=== PATIENT | male | born 1965 | race Caucasian/White ===

== ENCOUNTER 2021-04-02 17:12 | Inpatient (IN) | payer BC, SELFPAY ==
[2021-04-02 17:13] VITALS: BP 130/83; PULSE 110; RESP 16; TEMP 36.8; O2SAT 98; BMI 23.3
[2021-04-02 18:55] LABS: Coronavirus 19, PCR Not Detected (NotDetected); Influenza A, PCR Not Detected (NotDetected); Influenza B, PCR Not Detected (NotDetected)
[2021-04-02 19:06] LABS: Basophils % 0.2 % (0.1-2.0); Hematocrit 53.5 % (42.0-52.0); Hemoglobin 16.3 g/dL (14.1-18.0); Lymphocytes # 0.5 K/mm3 (0.7-4.5); Lymphocytes % 4.7 % (10-50); Mean Corpuscular HGB Conc 30.5 g/dL (31.8-35.4); Mean Corpuscular Hemoglobin 30.3 pg (27.0-31.2); Mean Corpuscular Volume 99.3 fl (80-94); Mean Platelet Volume 9.4 fl (7.4-10.4); Monocytes # 0.6 K/mm3 (0.1-1.0); Monocytes % 5.1 % (1.7-9.3); Neutrophils # 10.2 K/mm3 (1.8-7.8); Neutrophils % 89.9 % (37.0-80.0); Platelet Count 268 K/mm3 (142-424); Red Blood Count 5.38 M/mm3 (4.60-6.20); White Blood Count 11.3 K/mm3 (4.8-10.8)
[2021-04-02 19:12] LABS: Alanine Aminotransferase 32 U/L (12-78); Albumin Level 4.3 g/dl (3.5-5.0); Alkaline Phosphatase 138 U/L (38-126); Aspartate Amino Transferase 33 U/L (17-59); Bilirubin,Total 0.7 mg/dl (0.2-1.3); Blood Urea Nitrogen 33 mg/dl (9-20); Calcium 9.7 mg/dl (8.4-10.2); Chloride 98 mmol/L (98-107); Creatinine Clearance Estimated 41 mL/min (50-200); Estimated Glomerular Filt Rate 39 ml/min (>60); GFR (African American) 47 ML/MIN (>60); Globulin 4.1 g/dL (1.3-3.2); Lipase 34 U/L (23-300); Potassium 5.8 mmoL/L (3.5-5.1); Sodium 135 mmol/L (136-145); Total Protein,Serum 8.4 g/dl (6.3-8.2)
[2021-04-02 19:23] LABS: Anion Gap 37.8 mEq/L (5-15)
--- NOTE | 2021-04-02 19:23 | PC.NURSE ---
Dr Galindo notified on critical BG & CO2
[2021-04-02 19:25] LABS: Carbon Dioxide < 5 mmol/L (22.0-30.0); Glucose 665 mg/dl (74-100)
[2021-04-02 19:27] LABS: MANUAL DIFFERENTIAL MANUAL DIFFERENTIAL (MANUAL DIFF)
--- NOTE | 2021-04-02 19:27 | HMH.EDGENADL ---
ED Disposition Clinical Impression: DKA (diabetic ketoacidosis) Qualifiers: Diabetes mellitus type: type 2 Diabetes mellitus complication detail: without coma Qualified Code(s): E11.10 - Type 2 diabetes mellitus with ketoacidosis without coma Hyperglycemia due to type 2 diabetes mellitus Qualifiers: Diabetes mellitus long term care pharmacist insulin use: with usp use Qualified Code(s): E11.65 - Type 2 diabetes mellitus with hyperglycemia; Z79.4 - jail (current) use of insulin Disposition: Admitted As Inpatient Condition on Discharge: Fair Instructions: DI for Diarrhea and Traveler's Diarrhea -- Adult, DI for Diarrhea and Traveler's Diarrhea -- Child, DI for Nausea -- Adult, DI for Nausea -- Child Referrals: Provider,Referral, MD [Primary Care Provider] - - Critical Care Critical Care Time: Yes Attestation: On 04/02/21, the high probability of a clinically significant, sudden or life threatening deterioration of the following system(s) required my full and direct attention, intervention and personal management. The time I documented below is in addition to time spent performing reported procedures but includes the following listed in this critical care notation. Total Critical Care Time: 65 Vital system(s) involved:: Metabolic Failure My critical care processes included: Assessment & monitoring of V/S, Initial and Re-exams, Data Review/Interpretation, Coordinating Care, Medication Orders and management, Documentation Medical Decision Making - Medical Records Medical records reviewed: Yes: I reviewed the patient's medical records. - Tanner Inquiry Pt receiving controlled substance: No Vital Signs: 04/02/21 17:13 Temperature 98.2 F Temperature Source Oral Pulse Rate [Right Radial] 110 H Respiratory Rate 16 Blood Pressure [Right Arm] 130/83 Blood Pressure Mean [Right Arm] 98 Blood Pressure Source [Right Arm] Automatic Cuff Blood Pressure Position [Right Arm] Sitting 02 Sat by Pulse Oximetry 98 Oxygen Delivery Method Room Air - Lab Data Lab results reviewed: Yes: I reviewed the patient's lab results. Lab Results 04/02/21 18:43: SARS-CoV-2 (PCR) Not detected, Influenza A Untype (PCR) Not detected, Influenza Type B (PCR) Not detected 04/02/21 18:45: WBC 11.3 H, RBC 5.38, Hgb 16.3, Hct 53.5 H, MCV 99.3 H, MCH 30.3, MCHC 30.5 L, RDW 14.0, Plt Count 268, MPV 9.4, Neut % (Auto) 89.9 H, Lymph % (Auto) 4.7 L, [place] % (Auto) 5.1, Eos % (Auto) 0.0 L, Baso % (Auto) 0.2, Neut # (Auto) 10.2 H, Lymph # (Auto) 0.5 L, [place] # (Auto) 0.6, Eos # (Auto) 0.0, Baso # (Auto) 0.0, Total Counted 100, Neutrophils % (Manual) 88 H, Lymphocytes % (Manual) 6 L, Monocytes % (Manual) 6, Platelet Estimate Normal, RBC Morphology Normal 04/02/21 18:45: Sodium 135 L, Potassium 5.8 H, Chloride 98, Carbon Dioxide < 5 L*, Anion Gap 37.8 H, BUN 33 H, Creatinine 1.80 H, Estimated Creat Clear 41, Estimated GFR 39 L, Est GFR ( Amer) 47 L, Glucose 665 H*, Calcium 9.7, Total Bilirubin 0.7, AST 33, ALT 32, Alkaline Phosphatase 138 H, Total Protein 8.4 H, Albumin 4.3, Globulin 4.1 H, Albumin/Globulin Ratio 1.0 L, Lipase 34 04/02/21 18:45: Acetone Level Moderate Result diagrams: 04/02/21 18:45 04/02/21 18:45 Orders (Tests/Meds): ED MEDICATIONS Generic Name Dose Route Start Last Admin Trade Name Freq PRN Reason Stop Dose Admin Insulin Human Regular 100 unit 101 mls @ 6.414 mls/hr 04/02/21 19:45 / Sodium Chloride IV 05/02/21 19:44 .[id number] PAULO Protocol 0.1 UNITS/KG/HR Discontinued Medications Generic Name Dose Route Start Last Admin Trade Name Freq PRN Reason Stop Dose Admin Sodium Chloride 1,000 mls @ 999 mls/hr 04/02/21 18:07 04/02/21 18:49 Sod Chlor 0.9% 1000ml Bag IV 04/02/21 19:07 999 mls/hr .Q1H1M ONE Administration Insulin Human Lispro 8 unit 04/02/21 19:32 Humalog 100 Units/Ml 3ml Vial (Ssi) IV 04/02/21 19:33 ONCE ONE Ondansetron HCl 4 mg 04/02/21 18:06 04/02/21 18:49 Ondansetron 4mg/2ml
[2021-04-02 19:45] LABS: Lymphocytes % 6 % (10-50); Monocytes % 6 % (2-9); Neutrophils % 88 % (42-76); Platelet Estimate Normal; RBC Morphology Normal; Total Cells Counted 100
[2021-04-02 20:01] LABS: Acetone, Serum (Rapid) Moderate (None Detect)
--- NOTE | 2021-04-02 20:02 | PC.NURSE ---
Dr. Galindo notified of ABG results.
[2021-04-02 20:20] LABS: ABG Base Excess -26.8 mmol/L (-2.4-2.3); ABG HCO3 3.7 mmhg (22.0-26.0); ABG Oxygen Saturation 99 % (90-100); ABG PO2 137.2 mmhg (80-100); ABG TCO2 4.1 mmhg (23-27)
[2021-04-02 20:22] LABS: Allen's Test Acceptable; Oxygen RA %; Source Right Radial
[2021-04-02 20:23] LABS: ABG PCO2 13.6 mmhg (35.0-45.0); ABG PH 7.05 mmol/L (7.35-7.45)
--- NOTE | 2021-04-02 20:40 | PC.NURSE ---
Lucía Salas notified Dr Broderick of critical BG & CO2 results. NO: to Insulin gtt @ 6.4 units/hr and Lispro 8 units SQ 1x.
[2021-04-02 21:04] LABS: Blood Urea Nitrogen 34 mg/dl (9-20); Calcium 8.9 mg/dl (8.4-10.2); Chloride 102 mmol/L (98-107); Creatinine Clearance Estimated 46 mL/min (50-200); Estimated Glomerular Filt Rate 45 ml/min (>60); GFR (African American) 54 ML/MIN (>60); Potassium 5.3 mmoL/L (3.5-5.1); Sodium 136 mmol/L (136-145)
[2021-04-02 21:21] LABS: Anion Gap 34.3 mEq/L (5-15)
[2021-04-02 21:22] LABS: Carbon Dioxide < 5 mmol/L (22.0-30.0); Glucose 658 mg/dl (74-100)
[2021-04-02 21:29] VITALS: BMI 21.9
[2021-04-02 22:26] VITALS: BP 139/84; PULSE 118; RESP 22; TEMP 36.9; O2SAT 98
--- NOTE | 2021-04-02 22:48 | PC.NURSE ---
PT ARRIVED TO FLOOR VIA W/C FROM ED W/STAFF AT [id number]
[2021-04-02 22:57] VITALS: PULSE 120
[2021-04-02 23:02] LABS: POC Glucose,Bedside 586 (70-110)
[2021-04-02 23:06] VITALS: BP 138/79; PULSE 115; RESP 25; TEMP 36.6; O2SAT 100
[2021-04-02 23:25] LABS: POC Glucose,Bedside 584 (70-110)
[2021-04-03] VITALS (13 sets, daily range): BP systolic 93–168; BP diastolic 57–95; PULSE 86–120; RESP 16–21; TEMP 36.6–37.3; O2SAT 96–100; BMI 21.8
[2021-04-03 00:12] LABS: POC Glucose,Bedside 535 (70-110)
[2021-04-03 02:32] LABS: NT Pro Brain Natriuretic Pep. 273 pg/mL (0-125)
[2021-04-03 03:00] LABS: Anion Gap 30.1 mEq/L (5-15); Blood Urea Nitrogen 38 mg/dl (9-20); Calcium 9.1 mg/dl (8.4-10.2); Chloride 107 mmol/L (98-107); Creatinine Clearance Estimated 51 mL/min (50-200); Estimated Glomerular Filt Rate 52 ml/min (>60); GFR (African American) 63 ML/MIN (>60); Potassium 4.1 mmoL/L (3.5-5.1); Sodium 139 mmol/L (136-145)
[2021-04-03 03:06] LABS: Carbon Dioxide 6 mmol/L (22.0-30.0); Glucose 452 mg/dl (74-100)
[2021-04-03 06:32] LABS: POC Glucose,Bedside 401 (70-110)
[2021-04-03 06:32] LABS: POC Glucose,Bedside 422 (70-110)
[2021-04-03 06:32] LABS: POC Glucose,Bedside 215 (70-110)
[2021-04-03 06:32] LABS: POC Glucose,Bedside 296 (70-110)
--- NOTE | 2021-04-03 07:05 | HMH.HP ---
*Admission Date: 04/02/21 *Chief complaint: Vomiting *History of present illness: 55-year-old male with diabetes and diabetic neuropathy presented to the emergency department with 4 days of vomiting and abdominal pain. Symptoms were rather sudden in onset. While patient has had diabetes for approximately 10 years he has not seen a healthcare provider in a year and a half since the pandemic began. Patient uses a 70/30 insulin 25 units twice daily and reports his last known A1c was 12. Work-up in the emergency department revealed diabetic ketoacidosis. Patient was admitted to the stepdown unit and started on insulin drip. Blood sugars peaked at over 600 and this morning are down to 215. Patient continues to have some nausea. CO2 remains low. He is mildly tachycardic. He denies chest pain, shortness of breath, cough. [facility] History I have reviewed the patient's past medical history: Yes Medical History: Reports:: Diabetes Mellitus Type 2 Denies:: Cancer, Diabetes Mellitus Type 1, MRSA *Have you ever received a pneumonia vaccine?: No *Have you received a flu vaccine this season?: No Laterality Cases: Bilateral: Tonsillectomy Other Surgeries: Yes: Appendectomy Amputation: No Fractures: No - *Social History Smoking Status: Current every day smoker Alcohol Intake: never *Occupational Status:: employed *Travel in the last 8 weeks: None Family Hx:: No significant family history Review of Systems - Review of Systems Review of systems:: pertinent systems reviewed and negative unless documented below Meds Allergies Allergy/AdvReac Type Severity Reaction Status Date / Time No Known Allergies Allergy Verified 04/02/21 18:06 Exam Vital signs and Labs for Last 24 Hours: Temp Pulse Resp BP Pulse Ox 98.0 F 111 H 21 135/81 100 04/03/21 04:00 04/03/21 04:00 04/03/21 04:00 04/03/21 04:00 04/03/21 04:00 Laboratory Results - last 24 hr 04/02/21 18:43: SARS-CoV-2 (PCR) Not detected, Influenza A Untype (PCR) Not detected, Influenza Type B (PCR) Not detected 04/02/21 18:45: WBC 11.3 H, RBC 5.38, Hgb 16.3, Hct 53.5 H, MCV 99.3 H, MCH 30.3, MCHC 30.5 L, RDW 14.0, Plt Count 268, MPV 9.4, Neut % (Auto) 89.9 H, Lymph % (Auto) 4.7 L, [place] % (Auto) 5.1, Eos % (Auto) 0.0 L, Baso % (Auto) 0.2, Neut # (Auto) 10.2 H, Lymph # (Auto) 0.5 L, [place] # (Auto) 0.6, Eos # (Auto) 0.0, Baso # (Auto) 0.0, Total Counted 100, Neutrophils % (Manual) 88 H, Lymphocytes % (Manual) 6 L, Monocytes % (Manual) 6, Platelet Estimate Normal, RBC Morphology Normal 04/02/21 18:45: Sodium 135 L, Potassium 5.8 H, Chloride 98, Carbon Dioxide < 5 L*, Anion Gap 37.8 H, BUN 33 H, Creatinine 1.80 H, Estimated Creat Clear 41, Estimated GFR 39 L, Est GFR ( Amer) 47 L, Glucose 665 H*, Calcium 9.7, Total Bilirubin 0.7, AST 33, ALT 32, Alkaline Phosphatase 138 H, Total Protein 8.4 H, Albumin 4.3, Globulin 4.1 H, Albumin/Globulin Ratio 1.0 L, Lipase 34 04/02/21 18:45: Acetone Level Moderate 04/02/21 19:26: Specimen Source Right radial, O2 % Ra, ABG pH 7.05 L*, ABG pCO2 13.6 L, ABG pO2 137.2 H, ABG HCO3 3.7 L, ABG Total CO2 4.1 L, ABG O2 Saturation 99, ABG Base Excess -26.8 L, Wesley Test Acceptable 04/02/21 20:40: Sodium 136, Potassium 5.3 H, Chloride 102, Carbon Dioxide < 5 L*, Anion Gap 34.3 H, BUN 34 H, Creatinine 1.60 H, Estimated Creat Clear 46, Estimated GFR 45 L, Est GFR ( Amer) 54 L, Glucose 658 H*, Calcium 8.9 04/02/21 22:05: POC Glucose 586 H* 04/02/21 23:04: POC Glucose 584 H* 04/03/21 00:03: POC Glucose 535 H* 04/03/21 01:15: POC Glucose 422 H* 04/03/21 02:06: POC Glucose 401 H* 04/03/21 02:07: NT-Pro-B Natriuret Pep 273 H 04/03/21 02:07: Sodium 139, Potassium 4.1 D, Chloride 107, Carbon Dioxide 6 L* D, Anion Gap 30.1 H, BUN 38 H, Creatinine 1.40 H, Estimated Creat Clear 51, Estimated GFR 52 L, Est GFR ( Amer) 63, Glucose 452 H* D, Calcium 9.1 04/03/21 03:16: POC Glucose 296 H 04/03/21 05:17: POC Glucose 215 H I & O for Last 24 hours: Intake & Output
[2021-04-03 07:12] LABS: POC Glucose,Bedside 169 (70-110)
[2021-04-03 08:01] LABS: Acetone, Serum (Rapid) Small (None Detect)
--- NOTE | 2021-04-03 08:04 | P.CONPHA_ITS ---
[facility] Pharmacy VTE Monitoring - Patient Demographics Admission date: 04/03/21 Report Date: 04/03/21 Time: 08:04 Allergies/Adverse Reactions: Patient Allergies No Known Allergies Allergy (Verified 04/02/21 18:06) Height: 1.68 m Weight: 61.689 kg Patient Problems: Current Active Problems DKA (diabetic ketoacidosis) (Acute) Hyperglycemia due to type 2 diabetes mellitus (Acute) - VTE Risk Labs: VTE Related Lab Results Hgb 16.3 g/dL (14.1-18.0) 04/02/21 18:45 Hct 53.5 % (42.0-52.0) H 04/02/21 18:45 Plt Count 268 K/mm3 (142-424) 04/02/21 18:45 BUN 38 mg/dl (9-20) H 04/03/21 02:07 Creatinine 1.40 mg/dl (0.66-1.25) H 04/03/21 02:07 Estimated Creat Clear 51 mL/min (50-200) 04/03/21 02:07 Was VTE Risk Assessment Performed: Yes VTE Score: 1 VTE Risk Level: Very Low Risk Clinical Trial Participant: No - Prophylaxis VTE Prophylaxis Ordered?: Yes Types of VTE Prophylaxis: TEDS Knee High
[2021-04-03 08:08] LABS: Anion Gap 14.9 mEq/L (5-15); Blood Urea Nitrogen 35 mg/dl (9-20); Calcium 8.7 mg/dl (8.4-10.2); Carbon Dioxide 18 mmol/L (22.0-30.0); Chloride 113 mmol/L (98-107); Creatinine Clearance Estimated 72 mL/min (50-200); Estimated Glomerular Filt Rate 77 ml/min (>60); GFR (African American) 94 ML/MIN (>60); Glucose 210 mg/dl (74-100); Potassium 3.9 mmoL/L (3.5-5.1); Sodium 142 mmol/L (136-145)
[2021-04-03 08:40] LABS: Chol/HDL Ratio 5.2 (1-3.5); Cholesterol 160 mg/dl (140-200); HDL Cholesterol 31 mg/dl (40-60); Magnesium 2.2 mg/dl (1.6-2.3); Triglycerides 103 mg/dl (30-150); VLDL Cholesterol 21 mg/dL (0-40)
--- NOTE | 2021-04-03 08:42 | HMH.PHAINT ---
MEDICATION RECONCILIATION COMPLETE USING SURESCRIPTS AND ASKING THE PATIENT
[2021-04-03 08:48] LABS: Phosphorous 0.6 mg/dl (2.5-4.5)
[2021-04-03 08:51] LABS: Direct LDL Cholesterol 81.51 mg/dL (100-129)
[2021-04-03 08:58] LABS: Hemoglobin A1C > 14.0 % (4.0-6.0)
[2021-04-03 11:19] LABS: POC Glucose,Bedside 137 (70-110)
[2021-04-03 11:19] LABS: POC Glucose,Bedside 117 (70-110)
[2021-04-03 16:42] LABS: POC Glucose,Bedside 169 (70-110)
[2021-04-03 16:42] LABS: POC Glucose,Bedside 186 (70-110)
[2021-04-03 18:26] LABS: Chloride 110 mmol/L (98-107); Potassium 3.7 mmoL/L (3.5-5.1); Sodium 137 mmol/L (136-145)
[2021-04-03 18:29] LABS: Blood Urea Nitrogen 25 mg/dl (9-20); Creatinine Clearance Estimated 103 mL/min (50-200); Estimated Glomerular Filt Rate 117 ml/min (>60); GFR (African American) 141 ML/MIN (>60)
[2021-04-03 18:30] LABS: Anion Gap 12.7 mEq/L (5-15); Calcium 8.3 mg/dl (8.4-10.2); Carbon Dioxide 18 mmol/L (22.0-30.0); Glucose 267 mg/dl (74-100)
[2021-04-03 20:55] LABS: POC Glucose,Bedside 248 (70-110)
[2021-04-03 20:55] LABS: POC Glucose,Bedside 230 (70-110)
[2021-04-03 20:55] LABS: Acetone, Serum (Rapid) Moderate (None Detect)
[2021-04-04] VITALS: BP 137/89; PULSE 87; PULSE 89; RESP 18; TEMP 37.4; O2SAT 96
[2021-04-04 02:00] VITALS: BP 141/84; PULSE 92; RESP 18; TEMP 37.4; O2SAT 98
[2021-04-04 03:28] LABS: POC Glucose,Bedside 64 (70-110)
[2021-04-04 03:28] LABS: POC Glucose,Bedside 271 (70-110)
[2021-04-04 03:28] LABS: POC Glucose,Bedside 267 (70-110)
[2021-04-04 03:48] LABS: Anion Gap 8.4 mEq/L (5-15); Blood Urea Nitrogen 21 mg/dl (9-20); Calcium 8.5 mg/dl (8.4-10.2); Carbon Dioxide 21 mmol/L (22.0-30.0); Chloride 114 mmol/L (98-107); Creatinine Clearance Estimated 120 mL/min (50-200); Estimated Glomerular Filt Rate 139 ml/min (>60); GFR (African American) 169 ML/MIN (>60); Glucose 63 mg/dl (74-100); Potassium 3.4 mmoL/L (3.5-5.1); Sodium 140 mmol/L (136-145)
[2021-04-04 03:49] LABS: Acetone, Serum (Rapid) Small (None Detect)
[2021-04-04 04:00] VITALS: BP 160/82; PULSE 90; PULSE 91; RESP 18; TEMP 37.2; O2SAT 97
[2021-04-04 04:09] LABS: POC Glucose,Bedside 214 (70-110)
[2021-04-04 06:00] VITALS: BP 159/98; PULSE 88; RESP 16; TEMP 37.2; O2SAT 98
[2021-04-04 06:06] LABS: POC Glucose,Bedside 222 (70-110)
--- NOTE | 2021-04-04 06:26 | PC.NURSE ---
pt pleasant, AxOx4, has rested intermittently t/o shift, complained of nausea at beginning of shift and was treated per MAR, no other complaints 2100 FSBS 271, insulin at 4, IVF at 125 2200 FSBS 267 insulin at 8, IVF at 125 0000 FSBS 64, insulin gtt stopped, D5 started, stat BMP and serum acetone drawn 0030 FSBS 60, pt has remained asymptomatic, states he has lows at home, and he didn't feel like he was low 0115 FSBS 115, 0200 FSBS 168, insulin at 1, IVF at 75, small amt of acetone still present 0400 FSBS 214 insulin at 2, IVF at 75 0600 FSBS 222 insulin at 2, IVF at 75
[2021-04-04 06:56] LABS: Basophils % 0.2 % (0.1-2.0); Hematocrit 37.6 % (42.0-52.0); Hemoglobin 12.9 g/dL (14.1-18.0); Lymphocytes # 0.8 K/mm3 (0.7-4.5); Lymphocytes % 6.3 % (10-50); Mean Corpuscular HGB Conc 34.2 g/dL (31.8-35.4); Mean Corpuscular Hemoglobin 30.3 pg (27.0-31.2); Mean Corpuscular Volume 88.6 fl (80-94); Mean Platelet Volume 9.6 fl (7.4-10.4); Monocytes # 0.7 K/mm3 (0.1-1.0); Monocytes % 5.5 % (1.7-9.3); Neutrophils # 11.1 K/mm3 (1.8-7.8); Platelet Count 202 K/mm3 (142-424); Red Blood Count 4.24 M/mm3 (4.60-6.20); Red Cell Distribution Width 14.1 % (11.5-17.5); White Blood Count 12.7 K/mm3 (4.8-10.8)
[2021-04-04 06:58] LABS: Chloride 111 mmol/L (98-107); Potassium 3.4 mmoL/L (3.5-5.1); Sodium 137 mmol/L (136-145)
--- NOTE | 2021-04-04 06:59 | P.PN_ITS ---
Internal Medicine - PN: Subj *Date: 04/04/21 *Time: 06:59 Interval history: Patient has done well throughout the day. Anion gap is closed. He developed hypoglycemia overnight which required temporary cessation of insulin drip. Blood sugars are now in the 100s and low 200s. Nausea has improved. Abdominal pain has improved. Patient is hungry this morning. Exam Vital signs and Labs for Last 24 Hours: Temp Pulse Resp BP Pulse Ox 99.0 F 91 H 18 160/82 H 97 04/04/21 04:00 04/04/21 04:00 04/04/21 04:00 04/04/21 04:00 04/04/21 04:00 Laboratory Results - last 24 hr 04/03/21 06:25: Sodium 142, Potassium 3.9, Chloride 113 H, Carbon Dioxide 18 L, Anion Gap 14.9, BUN 35 H, Creatinine 1.00 D, Estimated Creat Clear 72, Estimated GFR 77, Est GFR ( Amer) 94 D, Glucose 210 H D, Calcium 8.7, Acetone Level Small 04/03/21 06:25: Phosphorus 0.6 L, Magnesium 2.2 04/03/21 06:25: Hemoglobin A1c > 14.0 H 04/03/21 06:25: Triglycerides 103, Cholesterol 160, LDL Cholesterol Direct 81.51 L, VLDL Cholesterol 21, HDL Cholesterol 31 L, Cholesterol/HDL Ratio 5.2 H 04/03/21 07:01: POC Glucose 169 H 04/03/21 09:07: POC Glucose 117 H 04/03/21 10:55: POC Glucose 137 H 04/03/21 13:38: POC Glucose 169 H 04/03/21 15:10: POC Glucose 186 H 04/03/21 17:21: POC Glucose 230 H 04/03/21 18:15: Sodium 137, Potassium 3.7, Chloride 110 H, Carbon Dioxide 18 L, Anion Gap 12.7, BUN 25 H D, Creatinine 0.70 D, Estimated Creat Clear 103, Estimated GFR 117, Est GFR ( Amer) 141 D, Glucose 267 H D, Calcium 8.3 L 04/03/21 18:37: POC Glucose 248 H 04/03/21 20:19: Acetone Level Moderate 04/03/21 21:03: POC Glucose 271 H 04/03/21 22:06: POC Glucose 267 H 04/04/21 00:18: POC Glucose 64 L 04/04/21 00:45: Sodium 140, Potassium 3.4 L, Chloride 114 H, Carbon Dioxide 21 L , Anion Gap 8.4, BUN 21 H, Creatinine 0.60 L, Estimated Creat Clear 120, Estimated GFR 139, Est GFR ( Amer) 169, Glucose 63 L D, Calcium 8.5, Acetone Level Small 04/04/21 04:00: POC Glucose 214 H 04/04/21 05:58: POC Glucose 222 H I & O for Last 24 hours: Intake & Output 04/01/21 04/02/21 04/03/21 04/04/21 11:59 11:59 11:59 11:59 Intake Total 783 / 783 1822 / 1822 Output Total 0 / 0 Balance 783 / 783 1822 / 1822 Weight 136 lb - Constitutional no acute distress - *Routine Respiratory Exam Present: CTA bilaterally - *Routine Cardiovascular Exam Present: RRR - *Routine Abdominal Exam Present: soft, normoactive bowel sounds. Absent: tenderness Assessment and Plan (1) DKA (diabetic ketoacidosis) Status: Acute Qualifiers: Diabetes mellitus type: type 2 Diabetes mellitus complication detail: without coma Qualified Code(s): E11.10 - Type 2 diabetes mellitus with ketoacidosis without coma Category: Medical Code(s): E11.10 - Type 2 diabetes mellitus with ketoacidosis without coma - Assessment and plan all Dx Assessment and Plan for all problems:: 1. Stop IV fluids and insulin drip. Transition to Humalog 75/25 25 units twice daily with his diabetic diet. Continue monitoring blood sugars. If patient tolerates his diet he may be discharged this afternoon
[2021-04-04 07:01] LABS: Blood Urea Nitrogen 20 mg/dl (9-20); Creatinine Clearance Estimated 103 mL/min (50-200); Estimated Glomerular Filt Rate 117 ml/min (>60); GFR (African American) 141 ML/MIN (>60)
[2021-04-04 07:02] LABS: Anion Gap 7.4 mEq/L (5-15); Calcium 8.1 mg/dl (8.4-10.2); Carbon Dioxide 22 mmol/L (22.0-30.0); Glucose 227 mg/dl (74-100)
[2021-04-04 07:04] LABS: Acetone, Serum (Rapid) Small (None Detect)
[2021-04-04 07:05] LABS: MANUAL DIFFERENTIAL MANUAL DIFFERENTIAL (MANUAL DIFF)
[2021-04-04 07:41] LABS: Lymphocytes % 12 % (10-50); Monocytes % 3 % (2-9); Neutrophils % 85 % (42-76); Platelet Estimate Normal; Total Cells Counted 100
[2021-04-04 08:00] VITALS: BP 141/88; PULSE 90; PULSE 96; RESP 18; O2SAT 97
--- NOTE | 2021-04-04 12:12 | PC.NURSE ---
0815 - FSBS 195 25 units 75/25 given at this time. 0915- FSBS 170 insulin drip d/c'd 1100-FSBS 159
[2021-04-04 14:11] VITALS: BMI 21.9
[2021-04-04 17:04] LABS: POC Glucose,Bedside 159 (70-110)
[2021-04-04 17:04] LABS: POC Glucose,Bedside 170 (70-110)
[2021-04-04 17:04] LABS: POC Glucose,Bedside 195 (70-110)
[2021-04-04 17:04] LABS: POC Glucose,Bedside 202 (70-110)
[2021-04-04 20:00] VITALS: BP 136/88; PULSE 80; RESP 18; TEMP 36.7; O2SAT 94
[2021-04-04 21:21] LABS: POC Glucose,Bedside 221 (70-110)
[2021-04-05] VITALS: BP 145/87; PULSE 85; RESP 18; TEMP 36.8; O2SAT 98
[2021-04-05 04:00] VITALS: BP 167/101; PULSE 89; RESP 20; TEMP 36.9; O2SAT 98
[2021-04-05 05:21] VITALS: BMI 21.9
[2021-04-05 06:37] LABS: POC Glucose,Bedside 269 (70-110)
[2021-04-05 06:55] LABS: Chloride 103 mmol/L (98-107); Potassium 3.6 mmoL/L (3.5-5.1); Sodium 136 mmol/L (136-145)
[2021-04-05 06:58] LABS: Anion Gap 15.6 mEq/L (5-15); Blood Urea Nitrogen 14 mg/dl (9-20); Calcium 8.2 mg/dl (8.4-10.2); Carbon Dioxide 21 mmol/L (22.0-30.0); Creatinine Clearance Estimated 103 mL/min (50-200); Estimated Glomerular Filt Rate 117 ml/min (>60); GFR (African American) 141 ML/MIN (>60); Glucose 312 mg/dl (74-100)
--- NOTE | 2021-04-05 07:00 | PC.NURSE ---
Pt A&Ox 4 able to ambulate independently, has had no c/o pain, no vomiting this shift. Pt VSS, no acute changes noted. CB in reach will continue to monitor.
--- NOTE | 2021-04-05 07:23 | HMH.ACPN2 ---
Internal Medicine - PN: Subj *Date: 04/05/21 *Time: 07:23 Interval history: Patient reports feeling better. His appetite is returned. He denies nausea. Blood sugars have been in the low 200s Exam Vital signs and Labs for Last 24 Hours: Temp Pulse Resp BP Pulse Ox 98.5 F 89 20 167/101 H 98 04/05/21 04:00 04/05/21 04:00 04/05/21 04:00 04/05/21 04:00 04/05/21 04:00 Laboratory Results - last 24 hr 04/04/21 05:30: Total Counted 100, Neutrophils % (Manual) 85 H, Lymphocytes % (Manual) 12, Monocytes % (Manual) 3, Platelet Estimate Normal 04/04/21 08:04: POC Glucose 195 H 04/04/21 09:13: POC Glucose 170 H 04/04/21 11:14: POC Glucose 159 H 04/04/21 15:59: POC Glucose 202 H 04/04/21 20:53: POC Glucose 221 H 04/05/21 05:47: Sodium 136, Potassium 3.6, Chloride 103, Carbon Dioxide 21 L, Anion Gap 15.6 H, BUN 14 D, Creatinine 0.70, Estimated Creat Clear 103, Estimated GFR 117, Est GFR ( Amer) 141, Glucose 312 H, Calcium 8.2 L 04/05/21 06:15: POC Glucose 269 H I & O for Last 24 hours: Intake & Output 04/02/21 04/03/21 04/04/21 04/05/21 11:59 11:59 11:59 11:59 Intake Total 783 / 783 3053 / 3053 120 / 120 Output Total 0 / 0 Balance 783 / 783 3053 / 3053 120 / 120 Weight 136 lb 136 lb 9 oz - Constitutional no acute distress - *Routine Respiratory Exam Present: CTA bilaterally - *Routine Cardiovascular Exam Present: RRR - *Routine Abdominal Exam Present: soft, normoactive bowel sounds. Absent: tenderness Assessment and Plan (1) DKA (diabetic ketoacidosis) Status: Acute Qualifiers: Diabetes mellitus type: type 2 Diabetes mellitus complication detail: without coma Qualified Code(s): E11.10 - Type 2 diabetes mellitus with ketoacidosis without coma Category: Medical Code(s): E11.10 - Type 2 diabetes mellitus with ketoacidosis without coma - Assessment and plan all Dx Assessment and Plan for all problems:: Patient is improved. I am increasing his split mix insulin to 35 units twice daily. If patient tolerates breakfast and lunch without incident he will be discharged home this afternoon
[2021-04-05 08:00] VITALS: BP 127/80; PULSE 85; RESP 16; TEMP 37.2; O2SAT 100
--- NOTE | 2021-04-05 10:17 | HMH.PTEV ---
Physical Therapy Evaluation Rehab PT IP Evaluation Start: 04/05/21 07:08 Freq: ONCE Status: Active Protocol: Document 04/05/21 10:09 ABRAN (Rec: 04/05/21 10:16 ABRAN [id number]) Subjective/History History History This is the initial evaluation of Mynor Schulz. Pt is a 55 y /o male admitted to ED for abdominal pain and cramping. Pt had high BG levels that required an insulin drip. Pt's BG levels are now w/i normal ranges and shows improvment. - note done by Rossy Rehman, SPT Subjective Subjective Pt states he feels great today and would like to go home. He states he couldn't eat for days due to nausea and abdominal pain but he can now eat and has appetite. Rehab PT IP Eval Objective Appearance Patient Behavior Appropriate,Cooperative Patient Orientation Person,Place,Time,Name, Situation Difficulty following instructions none Speech Pattern Clear,Appropriate,Coherent Ambulation Patient Able to Ambulate Yes Ambulation Observation IP General Gait Pattern Observation No Deviations/Normal Ambulation Distance (feet) 50 Ambulation Assistive Device None Ambulation Ability Independent Balance Ability to Arise Able, w/o using arms Sitting Balance Steady, safe Standing Balance Narrow stance w/o support Dynamic Sitting Balance Ability Normal Dynamic Standing Balance Ability Normal Transfers Bed Transfer Ability Independent Sit to Stand Bed Transfer Ability Independent Rehab PT IP prob,goals,plan Problems Date of Evaluation: 04/05/21 Rehab Potential Rehab Potential Innapropriate for Skilled Therapy Equipment Needs Assistive Devices None / NA Discharge Plan PT Discharge Plan At this time Pt has no need to need for PT. Pt demonstrates baseline function and can D/c to home when medically stable. G -code Required No Eval Complexity Eval Charge Codes 88740 - Low Complexity PHYSICIAN CERTIFICATION: I certify the specified therapy services for Mynor Schulz are required, authorized, and reviewed every 30 days.
[2021-04-05 16:25] LABS: POC Glucose,Bedside 126 (70-110)
--- NOTE | 2021-04-06 07:10 | P.DS_ITS ---
General - General Admission date:: 04/02/21 Discharge date: 04/06/21 HPI HPI: 55-year-old male with diabetes and diabetic neuropathy presented to the emergency department with 4 days of vomiting and abdominal pain. Symptoms were rather sudden in onset. While patient has had diabetes for approximately 10 years he has not seen a healthcare provider in a year and a half since the pandemic began. Patient uses a 70/30 insulin 25 units twice daily and reports his last known A1c was 12. Work-up in the emergency department revealed diabetic ketoacidosis. Patient was admitted to the stepdown unit and started on insulin drip. Blood sugars peaked at over 600 and this morning are down to 215. Patient continues to have some nausea. CO2 remains low. He is mildly tachycardic. He denies chest pain, shortness of breath, cough. Hospital Course Hospital Course: Patient was admitted and placed on insulin drip for diabetic ketoacidosis. Patient remained on his insulin drip from the day of admission until the morning of April 04. At that time patient's anion gap had closed and he no longer had vomiting. Patient was transitioned to his home split mix regimen of insulin. On April 04 patient's appetite was quite poor. Overnight he had hypoglycemia. Because of his persistent nausea without vomiting, which the patient claimed he had not had before as I suspected some gastroparesis, I added Reglan intravenously before meals and at bedtime. By the following morning on April 05 patient's nausea had completely resolved and his appetite had returned. Patient tolerated both breakfast and lunch without increase in nausea or abdominal pain. Blood glucose remained in the 100s and low 200s. As patient was tolerating his diet now he was discharged home. Patient has follow-up with local breastfeeding educator this coming Friday. It was emphasized to the patient to keep this appointment. Objective Vital signs: Temp Pulse Resp BP Pulse Ox 99.0 F 85 16 127/80 100 04/05/21 08:00 04/05/21 08:00 04/05/21 08:00 04/05/21 08:00 04/05/21 08:00 Results Labs on day of discharge: Labs from last 24 hours 04/05/21 11:58 POC Glucose 126 H DS: Diagnosis - Discharge Diagnosis (1) DKA (diabetic ketoacidosis) Status: Resolved Discharge Plan - Patient Discharge Instructions ACTIVITY: Continue current activity DIET: continue same diet Patient Instructions: Carbohydrate-Counting Diet, Diabetic Ketoacidosis, DI for Diabetic Ketoacidosis - Follow up Plan Disposition: Home, Self-Care Condition at discharge:: Improved Home Medications: Home Medications Medication Instructions Recorded Confirmed Type Gabapentin 300 mg PO TID 04/03/21 04/03/21 History Insulin NPH Hum/Reg Insulin Hm 30 unit SQ BID #0 04/05/21 04/03/21 Rx [Novolin 70-30 100 Unit/ml Vial] Prescriptions/Medication Reconciliation: Continued Gabapentin 300 mg PO TID Changed Insulin NPH Hum/Reg Insulin Hm [Novolin 70-30 100 Unit/ml Vial] 30 unit SQ BID #0 - Problem Reconciliation Problems Reviewed?: Yes
== END 2021-04-05 15:45 | disposition home or self-care (01) | DRG 639 ==
LOC: ER 20:22 → 2ND 22:12
PROVIDERS: Admitting Provider Family Medicine; Emergency Provider Family Medicine; Visit Provider Family Medicine
DX: E11.10 Type 2 diabetes mellitus with ketoacidosis without coma (principal); Z20.822 Contact with and (suspected) exposure to COVID-19; F17.210 Nicotine dependence, cigarettes, uncomplicated; E11.649 Type 2 diabetes mellitus with hypoglycemia without coma; E11.40 Type 2 diabetes mellitus with diabetic neuropathy, unspecified; E11.43 Type 2 diabetes mellitus with diabetic autonomic (poly)neuropathy; K31.84 Gastroparesis; Z79.4 Long term (current) use of insulin
CPT/HCPCS: 36415; 80048; 80053; 80061; 82009; 82803; 82962; 83036; 83690; 83735; 83880; 84100; 85007; 85025; 96365; 96366; 96367; 97161; 99284; C9803; J2405; U0003; U0005

== ENCOUNTER 2021-04-08 16:38 | Emergency (ER) | payer BC, SELFPAY ==
[2021-04-08] VITALS (9 sets, daily range): BP systolic 131–207; BP diastolic 80–111; PULSE 94–105; RESP 12–20; TEMP 36.9–37.1; O2SAT 96–100; BMI 21.7
[2021-04-08 16:57] LABS: POC Glucose,Bedside 598 (70-110)
--- NOTE | 2021-04-08 17:02 | CT_ITS ---
PROCEDURE INFORMATION: Exam: CT Abdomen And Pelvis Without Contrast Exam date and time: 04/08/2021 5:02 PM Age: 55 years old Clinical indication: Nausea and vomiting; Prior surgery; Surgery date: 6+ months TECHNIQUE: Imaging protocol: Computed tomography of the abdomen and pelvis without contrast. Radiation optimization: All CT scans at this facility use at least one of these dose optimization techniques: automated exposure control; mA and/or kV adjustment per patient size (includes targeted exams where dose is matched to clinical indication); or iterative reconstruction. COMPARISON: No relevant prior exams. FINDINGS: Lungs: 5 mm nodule in the lateral right lower lobe at 3-5. 3 mm nodule in the posteromedial left lower lobe at 3-5. Minimal streaky consolidation in the left lower lobe. Liver: Normal. No mass. Gallbladder and bile ducts: Normal. No calcified stones. No ductal dilation. Pancreas: Normal. No ductal dilation. Spleen: Normal. No splenomegaly. Adrenal glands: Normal. No mass. Kidneys and ureters: Small nonobstructing collecting system stones in both kidneys. No obstructing stones or hydronephrosis. Stomach and bowel: Unremarkable. No obstruction. No mucosal thickening. Appendix: No evidence for appendicitis. Intraperitoneal space: Unremarkable. No free air. No significant fluid collection. Vasculature: Unremarkable. No abdominal aortic aneurysm. Lymph nodes: Unremarkable. No enlarged lymph nodes. Urinary bladder: Unremarkable as visualized. Reproductive: Unremarkable as visualized. Bones/joints: Unremarkable. No acute fracture. Soft tissues: Surgical pledgets in the lower anterior abdominal wall to probably represent previous repair for inguinal hernias. IMPRESSION: 1. Nonobstructing stones in the collecting systems of both kidneys. 2. No other acute changes in the abdomen or pelvis. 3. Small nodules at the lung bases. For patients at low risk (minimal or absent history of smoking and of other known risk factors), no routine follow-up is indicated. For patients at high risk (history of smoking or of other known risk factors), consider optional CT Chest at 12 months. (Reference: Marci) 4. Small amount of airspace consolidation in the left lower lobe may represent atelectasis or pneumonia. REFERENCES: Marci Liriano, et al. Guidelines for Management of Incidental Pulmonary Nodules Detected on CT Images: From the Fleischner Society 2017. Radiology. 2017;284(1):228-243.
[2021-04-08 17:24] LABS: Basophils % 0.2 % (0.1-2.0); Eosinophils % 0.2 % (0.1-12.0); Hematocrit 45.2 % (42.0-52.0); Hemoglobin 14.8 g/dL (14.1-18.0); Lymphocytes # 0.6 K/mm3 (0.7-4.5); Lymphocytes % 6.2 % (10-50); Mean Corpuscular HGB Conc 32.6 g/dL (31.8-35.4); Mean Corpuscular Hemoglobin 29.7 pg (27.0-31.2); Mean Corpuscular Volume 91.1 fl (80-94); Mean Platelet Volume 9.1 fl (7.4-10.4); Monocytes # 0.7 K/mm3 (0.1-1.0); Monocytes % 7.3 % (1.7-9.3); Neutrophils # 8.8 K/mm3 (1.8-7.8); Neutrophils % 86.1 % (37.0-80.0); Platelet Count 483 K/mm3 (142-424); Red Blood Count 4.97 M/mm3 (4.60-6.20); Red Cell Distribution Width 14.3 % (11.5-17.5); White Blood Count 10.2 K/mm3 (4.8-10.8)
--- NOTE | 2021-04-08 17:24 | HMH.EDGENADL ---
ED Disposition Clinical Impression: Hyperglycemia without ketosis, Gastroparesis Disposition: Home, Self-Care Condition on Discharge: Good Instructions: DI for Hyperglycemia -- Adult Prescriptions: Ondansetron [Zofran 4mg ODT] 4 mg PO BIDP PRN #10 tab PRN Reason: Nausea Transmission Status: Pending to [id number] Referrals: Provider,Priscilla, [Primary Care Provider] - Travis Shannon MD [Staff Physician] - - Critical Care Critical Care Time: No Attestation: On 04/08/21, the high probability of a clinically significant, sudden or life threatening deterioration of the following system(s) required my full and direct attention, intervention and personal management. The time I documented below is in addition to time spent performing reported procedures but includes the following listed in this critical care notation. Medical Decision Making - Medical Records Medical records reviewed: Yes: I reviewed the patient's medical records. - Tanner Inquiry Pt receiving controlled substance: No Vital Signs: 04/08/21 17:00 04/08/21 17:15 04/08/21 17:30 Temperature 98.4 F Temperature Source Oral Pulse Rate 95 H Pulse Rate [Left Radial] 105 H Respiratory Rate 20 12 Blood Pressure 134/82 161/95 H Blood Pressure [Right Arm] 131/80 Blood Pressure Mean 99 Blood Pressure Mean [Right Arm] 97 Blood Pressure Source [Right Arm] Automatic Cuff Blood Pressure Position [Right Arm] Sitting 02 Sat by Pulse Oximetry 99 98 Oxygen Delivery Method Room Air 04/08/21 17:41 04/08/21 18:00 04/08/21 18:09 Temperature Temperature Source Pulse Rate 95 H 98 H 98 H Pulse Rate [Left Radial] Respiratory Rate 18 12 18 Blood Pressure 161/95 H 179/110 H 182/105 H Blood Pressure [Right Arm] Blood Pressure Mean 133 Blood Pressure Mean [Right Arm] Blood Pressure Source [Right Arm] Blood Pressure Position [Right Arm] 02 Sat by Pulse Oximetry 98 99 100 Oxygen Delivery Method Room Air Room Air 04/08/21 18:20 04/08/21 18:30 Temperature Temperature Source Pulse Rate 99 H Pulse Rate [Left Radial] Respiratory Rate 18 13 Blood Pressure 170/106 H 207/111 H Blood Pressure [Right Arm] Blood Pressure Mean 142 Blood Pressure Mean [Right Arm] Blood Pressure Source [Right Arm] Blood Pressure Position [Right Arm] 02 Sat by Pulse Oximetry 98 98 Oxygen Delivery Method - Lab Data Lab Results 04/08/21 16:50: POC Glucose 598 H* 04/08/21 17:00: Specimen Source Right radial, O2 % Ra, ABG pH 7.49 H, ABG pCO2 35.3, ABG pO2 74.1 L, ABG HCO3 26.5 H, ABG Total CO2 27.6 H, ABG O2 Saturation 96, ABG Base Excess 3.2 H, Wesley Test Acceptable 04/08/21 17:12: WBC 10.2, RBC 4.97, Hgb 14.8, Hct 45.2, MCV 91.1, MCH 29.7, MCHC 32.6, RDW 14.3, Plt Count 483 H, MPV 9.1, Neut % (Auto) 86.1 H, Lymph % (Auto) 6.2 L, [place] % (Auto) 7.3, Eos % (Auto) 0.2, Baso % (Auto) 0.2, Neut # (Auto) 8.8 H, Lymph # (Auto) 0.6 L, [place] # (Auto) 0.7, Eos # (Auto) 0.0, Baso # (Auto) 0.0, Total Counted 100, Neutrophils % (Manual) 78 H, Band Neutrophils % 7.0, Lymphocytes % (Manual) 11, Monocytes % (Manual) 4, Platelet Estimate Normal, RBC Morphology Normal 04/08/21 17:12: Sodium 134 L, Potassium 4.5, Chloride 97 L, Carbon Dioxide 28, Anion Gap 13.5, BUN 14, Creatinine 0.70, Estimated Creat Clear 102, Estimated GFR 117, Est GFR ( Amer) 141, Glucose 631 H*, Calcium 9.1, Total Bilirubin 0.7, AST 26, ALT 29, Alkaline Phosphatase 145 H, Total Protein 7.0, Albumin 3.3 L, Globulin 3.7 H, Albumin/Globulin Ratio 0.9 L, Lipase 94, Acetone Level Small 04/08/21 18:15: POC Glucose 497 H* Result diagrams: 04/08/21 17:12 04/08/21 17:12 Orders (Tests/Meds): ED MEDICATIONS Discontinued Medications Generic Name Dose Route Start Last Admin Trade Name Freq PRN Reason Stop Dose Admin Sodium Chloride 1,000 mls @ 999 mls/hr 04/08/21 17:00 04/08/21 17:29 Sod Chlor 0.9% 1000ml Bag IV 04/08/21 18:00 999 mls/hr
[2021-04-08 17:29] LABS: Alanine Aminotransferase 29 U/L (12-78); Albumin Level 3.3 g/dl (3.5-5.0); Albumin/Globulin Ratio 0.9 (1.1-1.8); Alkaline Phosphatase 145 U/L (38-126); Anion Gap 13.5 mEq/L (5-15); Aspartate Amino Transferase 26 U/L (17-59); Bilirubin,Total 0.7 mg/dl (0.2-1.3); Blood Urea Nitrogen 14 mg/dl (9-20); Calcium 9.1 mg/dl (8.4-10.2); Carbon Dioxide 28 mmol/L (22.0-30.0); Chloride 97 mmol/L (98-107); Creatinine Clearance Estimated 102 mL/min (50-200); Estimated Glomerular Filt Rate 117 ml/min (>60); GFR (African American) 141 ML/MIN (>60); Globulin 3.7 g/dL (1.3-3.2); Lipase 94 U/L (23-300); Potassium 4.5 mmoL/L (3.5-5.1); Sodium 134 mmol/L (136-145)
[2021-04-08 17:32] LABS: ABG Base Excess 3.2 mmol/L (-2.4-2.3); ABG HCO3 26.5 mmhg (22.0-26.0); ABG Oxygen Saturation 96 % (90-100); ABG PCO2 35.3 mmhg (35.0-45.0); ABG PH 7.49 mmol/L (7.35-7.45); ABG PO2 74.1 mmhg (80-100); ABG TCO2 27.6 mmhg (23-27)
[2021-04-08 17:33] LABS: MANUAL DIFFERENTIAL MANUAL DIFFERENTIAL (MANUAL DIFF)
[2021-04-08 17:33] LABS: Allen's Test Acceptable; Oxygen RA %; Source Right Radial
[2021-04-08 17:37] LABS: Glucose 631 mg/dl (74-100)
[2021-04-08 17:41] LABS: Acetone, Serum (Rapid) Small (None Detect)
[2021-04-08 18:07] LABS: Lymphocytes % 11 % (10-50); Monocytes % 4 % (2-9); Neutrophils % 78 % (42-76); Platelet Estimate Normal; RBC Morphology Normal; Total Cells Counted 100
--- NOTE | 2021-04-08 18:16 | PC.NURSE ---
fsbs 497
[2021-04-08 18:33] LABS: POC Glucose,Bedside 497 (70-110)
[2021-04-08 19:52] LABS: Glucose,Random 478 mg/dL (74-100)
== END 2021-04-08 20:23 | disposition home or self-care (01) ==
PROVIDERS: Emergency Provider Emergency Medicine
DX: K31.84 Gastroparesis (principal); E11.65 Type 2 diabetes mellitus with hyperglycemia; Z79.899 Other long term (current) drug therapy; F17.210 Nicotine dependence, cigarettes, uncomplicated
CPT/HCPCS: 36415; 74176; 80053; 82009; 82803; 82947; 82962; 83690; 85007; 85025; 96365; 96366; 96375; 99283; J2405

== ENCOUNTER 2021-07-30 15:17 | Emergency (ER) | payer BC, SELFPAY ==
[2021-07-30 17:05] VITALS: BP 155/95; PULSE 95; RESP 18; TEMP 36.6; O2SAT 99; BMI 23.3
--- NOTE | 2021-07-30 17:25 | HMH.EDABDPAI ---
ED Disposition Clinical Impression: Abdominal cramping, Nausea Disposition: Home, Self-Care Condition on Discharge: Good Instructions: DI for Acute Abdominal Pain Additional Instructions: follow up pcp, return for worse Prescriptions: Ondansetron [Zofran 4mg ODT] 4 mg PO TIDP PRN #15 tab PRN Reason: Nausea And Vomiting Transmission Status: Pending to [facility] Referrals: Matias Broderick MD [Primary Care Provider] - - Critical Care Critical Care Time: No Attestation: On 07/30/21, the high probability of a clinically significant, sudden or life threatening deterioration of the following system(s) required my full and direct attention, intervention and personal management. The time I documented below is in addition to time spent performing reported procedures but includes the following listed in this critical care notation. Medical Decision Making - Medical Records Medical records reviewed: Yes: I reviewed the patient's medical records. - Tanner Inquiry Pt receiving controlled substance: No Vital Signs: 07/30/21 17:05 Temperature 97.8 F Temperature Source Oral Pulse Rate [Left Radial] 95 H Respiratory Rate 18 Blood Pressure [Right Arm] 155/95 H Blood Pressure Mean [Right Arm] 115 02 Sat by Pulse Oximetry 99 Oxygen Delivery Method Room Air - Lab Data Lab Results 07/30/21 18:13: WBC 5.3, RBC 5.01, Hgb 14.9, Hct 46.9, MCV 93.6, MCH 29.7, MCHC 31.7 L, RDW 14.6, Plt Count 231, MPV 8.6, Neut % (Auto) 67.6, Lymph % (Auto) 22.8, [place] % (Auto) 7.4, Eos % (Auto) 1.3, Baso % (Auto) 0.9, Neut # (Auto) 3.6, Lymph # (Auto) 1.2, [place] # (Auto) 0.4, Eos # (Auto) 0.1, Baso # (Auto) 0.1 07/30/21 18:13: Sodium 135 L, Potassium 4.2, Chloride 99, Carbon Dioxide 29, Anion Gap 11.2, BUN 18, Creatinine 0.70, Estimated Creat Clear 110, Estimated GFR 117, Est GFR ( Amer) 141, Glucose 277 H, Calcium 8.0 L, Total Bilirubin 0.6, AST 27, ALT 18, Alkaline Phosphatase 94, Total Protein 6.7, Albumin 3.6, Globulin 3.1, Albumin/Globulin Ratio 1.2 Result diagrams: 07/30/21 18:13 07/30/21 18:13 Orders (Tests/Meds): ED MEDICATIONS Discontinued Medications Generic Name Dose Route Start Last Admin Trade Name Freq PRN Reason Stop Dose Admin Sodium Chloride 1,000 mls @ 999 mls/hr 07/30/21 17:30 Sod Chlor 0.9% 1000ml Bag IV 07/30/21 18:30 .Q1H1M PAULO Metoclopramide HCl 10 mg 07/30/21 17:24 Metoclopramide Hcl 10mg/2ml Vial IVP 07/30/21 17:25 ONCE ONE Ondansetron HCl 4 mg 07/30/21 17:09 07/30/21 17:10 Ondansetron 4mg Odt SL 07/30/21 17:10 4 mg ONCE ONE Administration Ondansetron HCl 4 mg 07/30/21 17:24 Ondansetron 4mg/2ml Vial IV 07/30/21 17:25 ONCE ONE Medical Decision Narrative: reeval, vss, appears well, okw ith plan to f/u pcp Abdominal Pain HPI - General Chief Complaint: Abdominal Pain Stated Complaint: Stomach pain,vomiting,unable to eat Time Seen by Provider: 07/30/21 17:25 Mode of Arrival: Ambulatory Limitations: No Limitations Description of Symptoms (Recalled from ER Triage Doc. by RN): pt to ed c/o lower abd pain. pt states he has had lower abd pain x3 days associated with n/v. pt denies diarrhea. pt denies blood in urine. - History of Present Illness HPI narrative: low abd pain, n/v, h/o same iddm Consistency: intermittent Severity: moderate Radiation: none Migration to: no migration Relieving factors: nothing Exacerbating factors: nothing Associated symptoms: denies other symptoms - Related Data Home Medications Medication Instructions Recorded Confirmed Gabapentin 300 mg PO TID 04/03/21 04/03/21 Previous Rx's Medication Instructions Recorded Insulin NPH Hum/Reg Insulin Hm 30 unit SQ BID #0 04/05/21 [Novolin 70-30 100 Unit/ml Vial] Ondansetron [Zofran 4mg ODT] 4 mg PO BIDP PRN #10 tab 10/10/21 Ondansetron [Zofran 4mg ODT] 4 mg PO TIDP PRN #15 tab 07/30/21 Allergies Allergy/AdvReac Type Sev
[2021-07-30 18:45] LABS: Basophils # 0.1 K/mm3 (0-0.2); Basophils % 0.9 % (0.1-2.0); Chloride 99 mmol/L (98-107); Eosinophils # 0.1 K/mm3 (0.0-0.4); Eosinophils % 1.3 % (0.1-12.0); Hematocrit 46.9 % (42.0-52.0); Hemoglobin 14.9 g/dL (14.1-18.0); Lymphocytes # 1.2 K/mm3 (0.7-4.5); Lymphocytes % 22.8 % (10-50); Mean Corpuscular HGB Conc 31.7 g/dL (31.8-35.4); Mean Corpuscular Hemoglobin 29.7 pg (27.0-31.2); Mean Corpuscular Volume 93.6 fl (80-94); Mean Platelet Volume 8.6 fl (7.4-10.4); Monocytes # 0.4 K/mm3 (0.1-1.0); Monocytes % 7.4 % (1.7-9.3); Neutrophils # 3.6 K/mm3 (1.8-7.8); Neutrophils % 67.6 % (37.0-80.0); Platelet Count 231 K/mm3 (142-424); Potassium 4.2 mmoL/L (3.5-5.1); Red Blood Count 5.01 M/mm3 (4.60-6.20); Red Cell Distribution Width 14.6 % (11.5-17.5); Sodium 135 mmol/L (136-145); White Blood Count 5.3 K/mm3 (4.8-10.8)
[2021-07-30 18:48] LABS: Alanine Aminotransferase 18 U/L (12-78); Albumin Level 3.6 g/dl (3.5-5.0); Albumin/Globulin Ratio 1.2 (1.1-1.8); Alkaline Phosphatase 94 U/L (38-126); Anion Gap 11.2 mEq/L (5-15); Aspartate Amino Transferase 27 U/L (17-59); Bilirubin,Total 0.6 mg/dl (0.2-1.3); Blood Urea Nitrogen 18 mg/dl (9-20); Carbon Dioxide 29 mmol/L (22.0-30.0); Creatinine Clearance Estimated 110 mL/min (50-200); Estimated Glomerular Filt Rate 117 ml/min (>60); GFR (African American) 141 ML/MIN (>60); Globulin 3.1 g/dL (1.3-3.2); Glucose 277 mg/dl (74-100); Total Protein,Serum 6.7 g/dl (6.3-8.2)
[2021-07-30 19:21] VITALS: BP 116/71; PULSE 80; RESP 18; TEMP 36.6; O2SAT 98
[2021-07-30 19:25] VITALS: BP 117/73; PULSE 82; RESP 18; TEMP 36.6; O2SAT 99
== END 2021-07-30 19:26 | disposition home or self-care (01) ==
PROVIDERS: Emergency Provider Emergency Medicine; PCP Family Medicine
DX: R11.0 Nausea (principal); R10.84 Generalized abdominal pain; F17.210 Nicotine dependence, cigarettes, uncomplicated
CPT/HCPCS: 80053; 85025; 99282

== ENCOUNTER 2022-01-10 17:26 | Emergency (ER) | payer BC, SELFPAY ==
[2022-01-10] VITALS (8 sets, daily range): BP systolic 185–231; BP diastolic 108–134; PULSE 89–103; RESP 16–18; TEMP 36.9–37.2; O2SAT 97–99; BMI 20.9
--- NOTE | 2022-01-10 20:13 | PC.NURSE ---
SPOKE WITH POISON CONTROL AND THEY STATE THE SIDE EFFECT OF TAKING MORE PRIOLOSEC THAN HE NEEDS IS ABDOMINAL PAIN AND NAUSEA.
--- NOTE | 2022-01-10 20:14 | HMH.EDNVD ---
ED Disposition Clinical Impression: Hypertension associated with diabetes Abdominal pain Qualifiers: Abdominal location: generalized Qualified Code(s): R10.84 - Generalized abdominal pain Hyperglycemia due to type 2 diabetes mellitus Qualifiers: Diabetes mellitus prison insulin use: unspecified prison insulin use status Qualified Code(s): E11.65 - Type 2 diabetes mellitus with hyperglycemia Disposition: Home, Self-Care Condition on Discharge: Good Instructions: DI for Acute Abdominal Pain Additional Instructions: call pcp in am for close follow up Prescriptions: lisinopriL [Lisinopril] 10 mg PO DAILY #30 tab Transmission Status: Pending to [facility] Referrals: Matias Broderick MD [Primary Care Provider] - - Critical Care Critical Care Time: No Attestation: On 01/10/22, the high probability of a clinically significant, sudden or life threatening deterioration of the following system(s) required my full and direct attention, intervention and personal management. The time I documented below is in addition to time spent performing reported procedures but includes the following listed in this critical care notation. Medical Decision Making - Medical Records Medical records reviewed: Yes: I reviewed the patient's medical records. - Tanner Inquiry Pt receiving controlled substance: No Vital Signs: 01/10/22 19:41 01/10/22 19:49 01/10/22 20:00 Temperature 98.4 F Temperature Source Oral Pulse Rate 100 H 97 H 97 H Pulse Rate [Left Radial] 89 Respiratory Rate 18 Blood Pressure 204/112 H 207/126 H 231/121 H Blood Pressure [Right Arm] 185/111 H Blood Pressure Mean 152 153 161 Blood Pressure Mean [Right Arm] 135 Blood Pressure Source Blood Pressure Source [Right Arm] Automatic Cuff Blood Pressure Position Blood Pressure Position [Right Arm] Sitting 02 Sat by Pulse Oximetry 99 98 99 Oxygen Delivery Method Room Air 01/10/22 20:30 01/10/22 21:00 01/10/22 21:30 Temperature Temperature Source Pulse Rate 102 H 103 H 97 H Pulse Rate [Left Radial] Respiratory Rate Blood Pressure 231/134 H 218/126 H 227/131 H Blood Pressure [Right Arm] Blood Pressure Mean 171 172 176 Blood Pressure Mean [Right Arm] Blood Pressure Source Blood Pressure Source [Right Arm] Blood Pressure Position Blood Pressure Position [Right Arm] 02 Sat by Pulse Oximetry 99 99 99 Oxygen Delivery Method 01/10/22 22:04 Temperature Temperature Source Pulse Rate 91 H Pulse Rate [Left Radial] Respiratory Rate Blood Pressure 210/108 H Blood Pressure [Right Arm] Blood Pressure Mean Blood Pressure Mean [Right Arm] Blood Pressure Source Manual Cuff/ Auscultation Blood Pressure Source [Right Arm] Blood Pressure Position Supine Blood Pressure Position [Right Arm] 02 Sat by Pulse Oximetry 97 Oxygen Delivery Method Room Air - Lab Data Lab results reviewed: Yes: I reviewed the patient's lab results. Lab Results 01/10/22 19:30: Urine Color Yellow, Urine Appearance Clear, Urine pH 6.0, Ur Specific [place] 1.020, Urine Protein 1+, Urine Glucose (UA) 3+, Urine Ketones 2+, Urine Blood Negative, Urine Nitrate Negative, Urine Bilirubin 1+ A, Urine Urobilinogen 0.2, Ur Leukocyte Esterase Negative, Urine RBC None, Urine WBC None, Ur Squamous Epith Cells Occasional, Urine Bacteria None, Urine Yeast Occasional 01/10/22 19:57: WBC 9.7, RBC 5.37, Hgb 16.2, Hct 47.9, MCV 89.1, MCH 30.1, MCHC 33.8, RDW 13.7, Plt Count 369, MPV 8.5, Neut % (Auto) 79.9, Lymph % (Auto) 12.2, [place] % (Auto) 6.7, Eos % (Auto) 0.6, Baso % (Auto) 0.5, Neut # (Auto) 7.7, Lymph # (Auto) 1.2, [place] # (Auto) 0.7, Eos # (Auto) 0.1, Baso # (Auto) 0.1, ESR 25 H 01/10/22 19:57: Sodium 138, Potassium 3.7, Chloride 96 L, Carbon Dioxide 28, Anion Gap 17.7 H, BUN 16, Creatinine 0.70, Estimated Creat Clear 97, Estimated GFR 116, Est GFR ( Amer) 141, Glucose 343 H, Calcium 9.2, Total Bilirubin 0.7, AST 32,
[2022-01-10 20:18] LABS: Basophils # 0.1 K/mm3 (0-0.2); Basophils % 0.5 % (0.1-2.0); Eosinophils # 0.1 K/mm3 (0.0-0.4); Eosinophils % 0.6 % (0.1-12.0); Hematocrit 47.9 % (42.0-52.0); Hemoglobin 16.2 g/dL (14.1-18.0); Lymphocytes # 1.2 K/mm3 (0.7-4.5); Lymphocytes % 12.2 % (10-50); Mean Corpuscular HGB Conc 33.8 g/dL (31.8-35.4); Mean Corpuscular Hemoglobin 30.1 pg (27.0-31.2); Mean Corpuscular Volume 89.1 fl (80-94); Mean Platelet Volume 8.5 fl (7.4-10.4); Monocytes # 0.7 K/mm3 (0.1-1.0); Monocytes % 6.7 % (1.7-9.3); Neutrophils # 7.7 K/mm3 (1.8-7.8); Neutrophils % 79.9 % (37.0-80.0); Platelet Count 369 K/mm3 (142-424); Red Blood Count 5.37 M/mm3 (4.60-6.20); Red Cell Distribution Width 13.7 % (11.5-17.5); White Blood Count 9.7 K/mm3 (4.8-10.8)
[2022-01-10 20:24] LABS: Alanine Aminotransferase 21 U/L (12-78); Albumin Level 3.8 g/dl (3.5-5.0); Alkaline Phosphatase 117 U/L (38-126); Amylase 49 U/L (30-110); Anion Gap 17.7 mEq/L (5-15); Aspartate Amino Transferase 32 U/L (17-59); Bilirubin,Total 0.7 mg/dl (0.2-1.3); Blood Urea Nitrogen 16 mg/dl (9-20); Calcium 9.2 mg/dl (8.4-10.2); Carbon Dioxide 28 mmol/L (22.0-30.0); Chloride 96 mmol/L (98-107); Creatinine Clearance Estimated 97 mL/min (50-200); Estimated Glomerular Filt Rate 116 ml/min (>60); GFR (African American) 141 ML/MIN (>60); Globulin 3.7 g/dL (1.3-3.2); Glucose 343 mg/dl (74-100); Lipase 22 U/L (23-300); Potassium 3.7 mmoL/L (3.5-5.1); Sodium 138 mmol/L (136-145); Total Protein,Serum 7.5 g/dl (6.3-8.2)
[2022-01-10 20:28] LABS: Lactic Acid 1.4 mmol/L (0.7-2.1)
[2022-01-10 20:29] LABS: C-Reactive Protein 3.3 mg/L (0-4)
--- NOTE | 2022-01-10 20:31 | PC.NURSE ---
BRIDGETTE MADE AWARE THAT PATIENT HAS COMPLETED HIS ORAL CONTRAST.
[2022-01-10 20:32] LABS: Acetone, Serum (Rapid) None Detected (None Detect)
[2022-01-10 20:39] LABS: Microscopic, Urine URINE MICROSCOPIC (MICROSCOPIC)
[2022-01-10 20:43] LABS: Procalcitonin 0.047 ng/mL (0.0-2.0)
[2022-01-10 20:46] LABS: Appearance,Urine CLEAR (Clear); Blood, Urine Negative (Negative); Color,Urine YELLOW (Yellow); Glucose,Urine (UA) 3+ (Negative); Ketones,Urine 2+ (Negative); Leukocyte Esterase,Urine Negative (Negative); Nitrate,Urine Negative (Negative); Protein,Urine 1+ (Negative); Urobilinogen,Urine 0.2 EU/dl (0.2)
[2022-01-10 20:51] LABS: Erythrocyte Sedimentation Rate 25 mm/hr (0-20)
[2022-01-10 21:08] LABS: Bilirubin,Urine 1+ (Negative); Squamous Epithelial Cell,Urine Occasional #/hpf (0-5); Yeast,Urine Occasional /lpf
--- NOTE | 2022-01-10 21:46 | PC.NURSE ---
PT REPORTS NAUSEA AND ABDOMINAL PAIN HAVE RESOLVED. BLANKET PROVIDED. PT UPDATED WITH EXPECTED WAIT TIMES. WCM.
--- NOTE | 2022-01-10 21:49 | XR_ITS ---
PROCEDURE INFORMATION: Exam: XR Complete Acute Abdomen Series Including Chest Exam date and time: 01/10/2022 9:47 PM Age: 56 years old Clinical indication: Abdominal pain; Generalized TECHNIQUE: Imaging protocol: Radiologic exam. Complete acute abdomen series, including 2 or more views of the abdomen and a single view chest. COMPARISON: CT ABDOMEN PELVIS WO CON 04/08/2021 5:47 PM FINDINGS: Tubes, catheters and devices: Retention sutures overlie the pelvis. Lungs: Interstitial prominence of the lungs which could reflect fluid overload or chronic disease. Pleural spaces: Normal. No pleural effusions. No pneumothorax. Heart/Mediastinum: Normal. No cardiomegaly. Gastrointestinal tract: Contrast is identified within the nondilated colon. The bowel gas pattern is nonspecific. Intraperitoneal space: Normal. No free air. Bones/joints: Degenerative changes of the shoulders, thoracolumbar spine and hips. Soft tissues: Normal. IMPRESSION: 1. Interstitial prominence of the lungs which could reflect fluid overload or chronic disease. 2. Contrast is identified within the nondilated colon. The bowel gas pattern is nonspecific. 3. Retention sutures overlie the pelvis. 4. Degenerative changes of the shoulders, thoracolumbar spine and hips.
--- NOTE | 2022-01-10 21:50 | PC.NURSE ---
PT RECORDS RECEIVED FROM [facility]. PT HAD CT 01/08/22. REQUEST TO NOT PERFORM CT AT THIS TIME.
--- NOTE | 2022-01-10 23:21 | INFXCTL.NOTE ---
DR. MULTANI SPEAKING TO SIGNIFICANT OTHER REGARDING PLAN OF CARE. INFORMED PATIENT WE ARE WAITING ON XRAY RESULTS.
--- NOTE | 2022-01-10 23:31 | PC.NURSE ---
Pt ambulatory to bathroom with no assistance.
--- NOTE | 2022-01-10 23:45 | PC.NURSE ---
PT IS ASYMPTOMATIC WITH BLOOD PRESSURE. MD AWARE OF ENDING VITAL SIGNS.
[2022-01-11] LABS: Hemoglobin A1C 9.5 % (4.0-6.0)
== END 2022-01-10 23:55 | disposition home or self-care (01) ==
PROVIDERS: Emergency Provider Emergency Medicine; PCP Family Medicine
DX: E11.65 Type 2 diabetes mellitus with hyperglycemia (principal); I15.2 Hypertension secondary to endocrine disorders; Z79.4 Long term (current) use of insulin
CPT/HCPCS: 74021; 80053; 81001; 82009; 82150; 83036; 83605; 83690; 84145; 85025; 85651; 86140; 96361; 96374; 96375; 99284; J2405

== ENCOUNTER 2022-02-25 16:01 | Observation (INO) | payer BC, SELFPAY ==
[2022-02-25 16:35] VITALS: BP 163/93; PULSE 87; RESP 18; TEMP 37; O2SAT 98; BMI 20.6
--- NOTE | 2022-02-25 17:01 | HMH.EDGENADL ---
Discharge Plan Disposition Patient Disposition: Admitted As Inpatient Chief Complaint: Nausea/Vomiting/Diarrhea Clinical Impressions Clinical Impression: Nausea & vomiting Discharge ED Provider: Trever Manzanares General Adult HPI General Chief complaint: Nausea/Vomiting/Diarrhea Stated complaint: stomach Vomiting Time Seen by Provider: 02/25/22 16:10 Mode of Arrival: Ambulatory Source of Information: Patient Limitations: No Limitations Description of Symptoms (Recalled from ER Triage Doc. by RN): to ed per pvt car with c/o vomiting abd pain starting lastnight pt with hx of gastropherisis. pt bllod sugar was 232 today and was given 15units insulin pt alert denies any fever, chills, diarrhea. History of Present Illness HPI narrative: This is a 56-year-old male with history of diabetes and gastroparesis presenting with abdominal pain, nausea, vomiting. Patient states 1 night prior to arrival, he was working on a car when he began vomiting. Has not been able to tolerate any p.o. intake since, has tried taking his Reglan, this has not made it better. Denies hematemesis, fevers, chills, chest pain, shortness of breath, weakness, lightheadedness, or any other concerning symptoms. Related Data Home Medications Medication Instructions Recorded Confirmed gabapentin 300 mg capsule 300 mg PO TID neuropathy 04/03/21 02/25/22 omeprazole magnesium 20 mg 1 tab PO DAILY GASTRO PARESIS 01/10/22 02/25/22 tablet,delayed release lisinopril 10 mg tablet 10 mg PO DAILY High blood pressure 02/25/22 02/25/22 Previous Rx's Medication Instructions Recorded insulin human U-100 NPH-regulr 30 unit (0.3 mL) SQ BID Diabetes 04/05/21 70-30 mix 100 unit/mL subcutaneous ##0 susp Allergies Allergy/AdvReac Type Severity Reaction Status Date / Time No Known Allergies Allergy Verified 04/02/21 18:06 PFSH PFS Social History Smoking Status: Never smoker alcohol intake: never current occupational status: employed ROS Obtained: Yes All systems reviewed & no additional complaints except as documented Physical Exam General General appearance: alert and in no apparent distress Head Head exam: atraumatic, normocephalic and normal inspection Eye Eye exam: Present normal appearance, PERRL and EOMI ENT ENT exam: Present normal exam, normal oropharynx, mucous membranes moist, TM's normal bilaterally and normal external ear exam Neck Neck exam: Present normal inspection, full ROM and trachea midline; Absent meningismus or lymphadenopathy Chest Chest inspection: Present normal inspection and symmetric chest wall rise; Absent tenderness Respiratory Respiratory exam: Present normal lung sounds bilaterally; Absent respiratory distress Cardiovascular Cardiovascular exam: Present regular rate and normal rhythm; Absent JVD Abdominal Exam Abdominal exam: Present soft, tenderness and normal bowel sounds; Absent distention, guarding, rebound or rigidity Extremities Exam Extremities exam: Present normal inspection, full ROM and normal capillary refill; Absent calf tenderness Back Exam Back exam: Present normal inspection; Absent tenderness Neurological Exam Neurological exam: Present alert and oriented X3 Psychiatric Psychiatric exam: Present normal affect and normal mood Skin Skin exam: Present warm, dry, intact and normal color Lymphatic Lymphatic Findings: no adenopathy Medical Decision Making Tanner Inquiry Pt receiving controlled substance: No Vital Signs: 02/25/22 16:35 02/25/22 19:24 Temperature 98.6 F 98.6 F Temperature Source Oral Oral Pulse Rate 78 Pulse Rate [Radial] 87 Respiratory Rate 18 16 Blood Pressure 134/78 Blood Pressure [Right Arm] 163/93 H Blood Pressure Mean [Right Arm] 116 Blood Pressure Position Sitting Blood Pressure Position [Right Arm] Sitting 02 Sat by Pulse Oximetry 98 Oxygen Delivery Method Room Air Room Air Lab Data Lab Results 02/25/22 16:40: WBC 7.6, RBC 4.71, Hgb 13.5 L,
[2022-02-25 17:11] LABS: Lipase 22 U/L (23-300)
[2022-02-25 17:12] LABS: Alanine Aminotransferase 27 U/L (12-78); Albumin Level 3.4 g/dl (3.5-5.0); Albumin/Globulin Ratio 1.1 (1.1-1.8); Alkaline Phosphatase 151 U/L (38-126); Anion Gap 8.5 mEq/L (5-15); Aspartate Amino Transferase 28 U/L (17-59); Basophils % 0.5 % (0.1-2.0); Bilirubin,Total 0.5 mg/dl (0.2-1.3); Blood Urea Nitrogen 12 mg/dl (9-20); Carbon Dioxide 32 mmol/L (22.0-30.0); Chloride 100 mmol/L (98-107); Creatinine Clearance Estimated 112 mL/min (50-200); Eosinophils % 0.4 % (0.1-12.0); Estimated Glomerular Filt Rate 139 ml/min (>60); GFR (African American) 168 ML/MIN (>60); Globulin 3.2 g/dL (1.3-3.2); Glucose 281 mg/dl (74-100); Hematocrit 41.8 % (42.0-52.0); Hemoglobin 13.5 g/dL (14.1-18.0); Lymphocytes % 13.2 % (10-50); Mean Corpuscular HGB Conc 32.4 g/dL (31.8-35.4); Mean Corpuscular Hemoglobin 28.7 pg (27.0-31.2); Mean Corpuscular Volume 88.8 fl (80-94); Mean Platelet Volume 7.4 fl (7.4-10.4); Monocytes # 0.5 K/mm3 (0.1-1.0); Monocytes % 6.2 % (1.7-9.3); Neutrophils # 6.1 K/mm3 (1.8-7.8); Neutrophils % 79.8 % (37.0-80.0); Platelet Count 272 K/mm3 (142-424); Potassium 3.5 mmoL/L (3.5-5.1); Red Blood Count 4.71 M/mm3 (4.60-6.20); Red Cell Distribution Width 14.1 % (11.5-17.5); Sodium 137 mmol/L (136-145); Total Protein,Serum 6.6 g/dl (6.3-8.2); White Blood Count 7.6 K/mm3 (4.8-10.8)
[2022-02-25 17:27] LABS: Troponin I < 0.01 ng/ml (0.00-0.034)
--- NOTE | 2022-02-25 17:30 | PC.NURSE ---
radial drill press set up operator paging service MD manager electronic
[2022-02-25 17:57] LABS: Coronavirus 19, PCR Not Detected (NotDetected); Influenza A, PCR Not Detected (NotDetected); Influenza B, PCR Not Detected (NotDetected)
--- NOTE | 2022-02-25 18:05 | PC.NURSE ---
ER MD speaking with patient regarding update on POC/results
[2022-02-25 19:24] VITALS: BP 134/78; PULSE 78; RESP 16; TEMP 37; O2SAT 98
--- NOTE | 2022-02-25 19:25 | PC.NURSE ---
PT ARRIVED TO FLOOR VIA W/C FROM ED @ 192
[2022-02-25 19:52] VITALS: BP 118/73; PULSE 98; RESP 17; TEMP 37.1; O2SAT 98
[2022-02-25 20:00] VITALS: PULSE 90; O2SAT 97
[2022-02-25 21:06] LABS: Troponin I < 0.01 ng/ml (0.00-0.034)
--- NOTE | 2022-02-25 21:52 | PC.NURSE ---
Patient's FSBS 232 has order for Humolog Mix 75/25 30units SQ BID; Called construction cost estimator provider Dr. Condon, received v.o. to discontinue Humolog 75/25 Mix and start Regular Humolog Medium sliding scale ACHS.
[2022-02-25 22:31] LABS: POC Glucose,Bedside 232 (70-110)
[2022-02-25 23:45] LABS: Microscopic, Urine URINE MICROSCOPIC (MICROSCOPIC)
[2022-02-25 23:49] LABS: Appearance,Urine CLEAR (Clear); Bilirubin,Urine Negative (Negative); Blood, Urine Negative (Negative); Color,Urine YELLOW (Yellow); Glucose,Urine (UA) 3+ (Negative); Ketones,Urine Negative (Negative); Leukocyte Esterase,Urine Negative (Negative); Nitrate,Urine Negative (Negative); PH,Urine 6.5 (5.0-8.5); Protein,Urine TRACE (Negative)
[2022-02-25 23:50] VITALS: BP 240/128; PULSE 82
--- NOTE | 2022-02-25 23:50 | PC.NURSE ---
Addendum entered by Bhumi Yap RN 02/26/22 00:14: Retook manual BP 180/100 patient is still asymptomatic; will continue to monitor. Original Note: Tech reported BP >200/138 manually (left arm). This RN took manual BP in Right Arm >240/128, patient is asymptomatic, called functional mental disability teacher provider immediately recvd v.o. for Clonidine 0.1mg PO every 4 hours for systolic >160. Patient denies history of HTN, does c/o abdominal pain 12/07 has been give Reglan PRN dose & Phenagren PRN medication at 2325. States this happened once in ED when he was in pain; will continue to monitor.
[2022-02-25 23:53] VITALS: BP 240/120; PULSE 89; RESP 18; TEMP 36.8; O2SAT 97
[2022-02-26] VITALS (8 sets, daily range): BP systolic 114–180; BP diastolic 77–100; PULSE 76–100; RESP 16–18; TEMP 36.7–37.3; O2SAT 98–100; BMI 21.2
[2022-02-26 00:05] LABS: Bacteria,Urine Trace /lpf; Squamous Epithelial Cell,Urine Occasional #/hpf (0-5)
[2022-02-26 00:10] LABS: Troponin I < 0.01 ng/ml (0.00-0.034)
--- NOTE | 2022-02-26 00:23 | PC.NURSE ---
RN Aware of Elevated Blood pressure.
--- NOTE | 2022-02-26 03:33 | PC.NURSE ---
Patient resting with eyes closed. BP now WNL, other VSS. No n/v/d noted. Patient shows no s/s of acute distress, call light in reach, bed at lowest level for safety; will continue to monitor.
[2022-02-26 06:23] LABS: POC Glucose,Bedside 133 (70-110)
--- NOTE | 2022-02-26 07:31 | HMH.PHAINT1 ---
Pharmacy Intervention Comments: MEDICATION RECONCILIATION COMPLETED ON PATIENT USING EXTERNAL FILL HISTORY FROM PHARMACY. -DEE VAUGHN, HAYLIED
--- NOTE | 2022-02-26 07:39 | EXP.PHA.VTE ---
[facility] Pharmacy VTE Monitoring Patient Demographics Admission date: 02/25/22 Report Date: 02/26/22 Time: 07:39 Patient Allergies No Known Allergies Allergy (Verified 04/02/21 18:06) Height: 1.68 m Weight: 60.016 kg Current Active Problems (Updated 02/25/22 @ 19:29 by Elda Zhang RN) Nausea & vomiting (Acute) VTE Risk Labs: VTE Related Lab Results Hgb 13.5 g/dL (14.1-18.0) L 02/25/22 16:40 Hct 41.8 % (42.0-52.0) L 02/25/22 16:40 Plt Count 272 K/mm3 (142-424) 02/25/22 16:40 BUN 12 mg/dl (9-20) 02/25/22 16:40 Creatinine 0.60 mg/dl (0.66-1.25) L 02/25/22 16:40 Estimated Creat Clear 112 mL/min (50-200) 02/25/22 16:40 VTE Risk Level: Very Low Risk Prophylaxis VTE Prophylaxis Ordered?: Yes Types of VTE Prophylaxis: TEDS Knee High Location of Applied Device: Bilateral Lower Extremeties
--- NOTE | 2022-02-26 09:22 | ECG_ITS ---
APPROVED REPORT Exam: Resting ECG HR:77 bpm ECG Measurements Heart Rate 77 AXES SD 147 P 73 QRSd 94 QRS 3 QT 404 T 60 QTc 436 Conclusion SINUS RHYTHM NORMAL ECG UNCONFIRMED REPORT Electronically signed by : Matias Arellano MD 02/26/2022 16:47:44
--- NOTE | 2022-02-26 10:36 | PC.NURSE ---
Rounded on pt, cleaned and straightened room. Pt in bed resting, family at bedside. Replenished ice water, no needs voiced.
[2022-02-26 12:01] LABS: POC Glucose,Bedside 295 (70-110)
--- NOTE | 2022-02-26 14:51 | EXP.HPDC ---
General Admission date:: 02/25/22 Discharge date: 02/26/22 *Admission Date: 02/25/22 *Chief complaint: Nausea/Vomiting/Diarrhea *History of present illness: 56 YOM presentedto [facility] ED for N/V and And pain over night. He reports having a history of DM and gastroparesis. He states BG was 232. He has taken his Reglan with out effect. He has not been able tolerate solids or liquids since last night when all started. He denies any visible blood in emesis or stool. [facility] Social History (Updated 02/26/22 @ 01:30 by Bhumi Yap RN) Smoking Status: Never smoker alcohol intake: never current occupational status: employed Travel in the last 8 weeks: None Review of Systems Constitutional Constitutional: Reports system reviewed and no additional complaints, except as documented, Denies excessive sweating, Reports fatigue and Reports lethargy Eyes Eyes: Reports system reviewed and no additional complaints, except as documented, Denies blurry vision, Denies change in vision and Denies loss of vision ENT Ears, Nose, Mouth, and Throat: Reports system reviewed and no additional complaints, except as documented, Denies change in voice and Denies dizziness *Cardiovascular Cardiovascular: Reports system reviewed and no additional complaints, except as documented, Denies chest pain and Denies dyspnea *Respiratory Respiratory: Reports system reviewed and no additional complaints, except as documented and Denies dyspnea *Gastrointestinal Gastrointestinal: Reports abdominal pain, Denies change in bowel habits, Reports early satiety, Denies hematemesis, Denies melena, Reports nausea and Reports vomiting Integumentary/Breasts Skin/Breast: Reports system reviewed and no additional complaints, except as documented, Denies change in hair and Denies lesions *Neurologic Neurologic: Reports system reviewed and no additional complaints, except as documented, Denies dizziness and Denies loss of vision Psychiatric Psychiatric: Reports system reviewed and no additional complaints, except as documented, Denies anxiety and Denies difficulty concentrating Endocrine Endocrine: Reports system reviewed and no additional complaints, except as documented, Denies cold intolerance, Denies excessive sweating and Reports fatigue Hematologic/Lymphatic Hematologic/Lymphatic: Reports system reviewed and no additional complaints, except as documented and Denies easy bruising Allergic/Immunologic Allergic/Immunologic: Reports system reviewed and no additional complaints, except as documented, Reports GI upset with certain foods and Denies seasonal rhinorrhea Exam Data for Last 24 hours Vital signs and Labs for Last 24 Hours: Temp Pulse Resp BP Pulse Ox 98.1 F 80 16 156/90 H 98 02/26/22 12:00 02/26/22 13:25 02/26/22 12:00 02/26/22 12:00 02/26/22 12:00 Laboratory Results - last 24 hr 02/25/22 16:40: WBC 7.6, RBC 4.71, Hgb 13.5 L, Hct 41.8 L, MCV 88.8, MCH 28.7, MCHC 32.4, RDW 14.1, Plt Count 272, MPV 7.4, Neut % (Auto) 79.8, Lymph % (Auto) 13.2, [place] % (Auto) 6.2, Eos % (Auto) 0.4, Baso % (Auto) 0.5, Neut # (Auto) 6.1, Lymph # (Auto) 1.0, [place] # (Auto) 0.5, Eos # (Auto) 0.0, Baso # (Auto) 0.0 02/25/22 16:40: Sodium 137, Potassium 3.5, Chloride 100, Carbon Dioxide 32 H, Anion Gap 8.5, BUN 12, Creatinine 0.60 L, Estimated Creat Clear 112, Estimated GFR 139, Est GFR ( Amer) 168, Glucose 281 H, Calcium 9.0, Total Bilirubin 0.5, AST 28, ALT 27, Alkaline Phosphatase 151 H, Total Protein 6.6, Albumin 3.4 L, Globulin 3.2, Albumin/Globulin Ratio 1.1 02/25/22 16:40: Lipase 22 L 02/25/22 16:40: Troponin I < 0.01 02/25/22 17:50: SARS-CoV-2 (PCR) Not detected, Influenza A Untype (PCR) Not detected, Influenza Type B (PCR) Not detected 02/25/22 17:50: Lactate 1.0 02/25/22 20:17: Troponin I < 0.01 02/25/22 21:51: POC Glucose 232 H 02/25/22 23:30: Troponin I < 0.01 02/25/22 23:40: Urine Color Yellow, Urine Appearance Clear, Urine pH 6.5, Ur Specific [place] 1.010, Urine
--- NOTE | 2022-02-27 12:50 | CARE MANAGER ---
Contacted patient related to discharge from hospital. He states he feels much better. He is aware of his follow up appointment and denies any questions or concerns at this time. JOHN Sandoval
== END 2022-02-26 16:20 | disposition home or self-care (01) ==
LOC: ER 16:59 → 2ND 19:55
PROVIDERS: Admitting Provider Family Medicine; Emergency Provider Emergency Medicine; PCP Family Medicine; Visit Provider Family Medicine
DX: E11.43 Type 2 diabetes mellitus with diabetic autonomic (poly)neuropathy (principal); K31.84 Gastroparesis; Z79.4 Long term (current) use of insulin; Z20.822 Contact with and (suspected) exposure to COVID-19
CPT/HCPCS: 36415; 80053; 81001; 82962; 83605; 83690; 84484; 85025; 93005; 99285; C9803; G0378; U0003; U0005